=== PATIENT | female | born 1980 | race Two or more races ===

== ENCOUNTER 2019-12-21 12:16 | Emergency (ER) | payer OTHER ==
[~2019-12-21] VITALS: Ht 162.6 cm; Wt 70.3 kg
[2019-12-21] MEDS ORDERED: HYDROCODONE/APAP 5/325MG 1 EACH TABLET ONE (13:00)
[2019-12-21] MEDS ORDERED: CYCLOBENZAPRINE 10 MG TABLET ONE (13:01)
[2019-12-21] MEDS ORDERED: ACETAMINOPHEN 325 MG TABLET ONE (13:01)
[2019-12-21] MEDS: HYDROCODONE/APAP 5/325MG 1 EACH TABLET PO ONE (13:04)
[2019-12-21] MEDS: ACETAMINOPHEN 325 MG TABLET PO ONE (13:04)
[2019-12-21] MEDS: CYCLOBENZAPRINE 10 MG TABLET PO ONE (13:04)
--- NOTE | 2019-12-21 14:12 | NUR ---
Patient discharged to home in stable condition. Written and verbal after care instructions given. Patient verbalizes understanding of instruction.
--- NOTE | 2019-12-21 14:12 | NUR ---
PATIENT CAME IN TO THE ER [facility] C/O "SEVERE" LOWER BACK PAIN S/P BENDING OVER TO PICK SOMETHING 20MIN [employer]. ON ROOM AIR, BREATHING EVENLY AND UNLABORED. CONNECTED TO THE MONITOR AND PULSE OX. KEPT COMFORTABLE, WILL CONTINUE TO MONITOR ACCORDINGLY.
[2019-12-21 14:13] VITALS: BP 128/81
== END 2019-12-21 14:13 | disposition home or self-care (01) ==
LOC: ER 12:21
DX: S39.012A Strain of muscle, fascia and tendon of lower back, initial encounter (principal); X58.XXXA Exposure to other specified factors, initial encounter; Y93.89 Activity, other specified; Y92.89 Other specified places as the place of occurrence of the external cause; Y99.8 Other external cause status